=== PATIENT | male | born 1995 | race Hispanic/Latino ===

== ENCOUNTER 2022-01-20 12:12 | Emergency (ER) | payer SELFPAY ==
[2022-01-20] MEDS ORDERED: LIDOCAINE (1%) 10 MG/1 ML VIAL 20 ML MDV INFILTRATI NR (12:22)
[2022-01-20] MEDS ORDERED: IBUPROFEN 800 MG TAB PO STA (12:23)
[2022-01-20] MEDS ORDERED: TETANUS,DIPH,PERTUSS(ACELL) VACCINE 0.5 ML SYRINGE IM ONE (13:00)
--- NOTE | 2022-01-20 13:24 | XRay Report ---
RIGHT FINGER 3 VIEWS INDICATION: crush injury with laceration. COMPARISON: None. IMPRESSION: 3 views of the right second digit are presented. There is diffuse soft tissue swelling a nd laceration. No radiopaque foreign body is detected. No acute osseous injury or joint pathology. Signer Name: Reji Metz Jr, MD Signed: 01/20/2022 1:19 PM Workstation Name: [id number]
[2022-01-20] MEDS ORDERED: SODIUM CHLORIDE 0.9% IRR 500 ML BOTTLE IR ONE (13:54)
--- NOTE | 2022-01-20 14:13 | Emergency Department Report ---
<CATRACHITO COBURN L - Last Filed: 01/20/22 15:31> ED General Adult HPI - General Chief complaint: Laceration/Recheck/Suture Stated complaint: HAND INJURY W/C Time Seen by Provider: 01/20/22 12:22 - Related Data Previous Rx's Medication Instructions Recorded Last Taken Type Ibuprofen [Motrin 800 MG tab] 800 mg PO Q8HR PRN #20 tablet 01/20/22 Unknown Rx Mupirocin [Bactroban 2% OINT] 1 applic TP TID 7 Days #1 tube 01/20/22 Unknown Rx cephALEXin [Keflex] 500 mg PO Q8HR 7 Days #21 cap 01/20/22 Unknown Rx traMADoL [Ultram 50 MG tab] 50 mg PO Q8HR PRN #8 tablet 01/20/22 Unknown Rx Allergies Allergy/AdvReac Type Severity Reaction Status Date / Time No Known Allergies Allergy Unverified 01/20/22 12:30 ED Past Medical Hx - Medications Home Medications: Home Medications Medication Instructions Recorded Confirmed Last Taken Type Ibuprofen [Motrin 800 MG tab] 800 mg PO Q8HR PRN #20 tablet 01/20/22 Unknown Rx Mupirocin [Bactroban 2% OINT] 1 applic TP TID 7 Days #1 tube 01/20/22 Unknown Rx cephALEXin [Keflex] 500 mg PO Q8HR 7 Days #21 cap 01/20/22 Unknown Rx traMADoL [Ultram 50 MG tab] 50 mg PO Q8HR PRN #8 tablet 01/20/22 Unknown Rx ED Disposition Clinical Impression: Laceration of finger, Laceration Disposition: 01 HOME / SELF CARE / HOMELESS Is pt being admited?: No Does the pt Need Aspirin: No Condition: Stable Instructions: Sutures, Miriam, or Adhesive Wound Closure, [id number] Additional Instructions: Please return to the emergency department in 12 days for suture removal Prescriptions: Mupirocin [Bactroban 2% OINT] 1 applic TP TID 7 Days #1 tube cephALEXin [Keflex] 500 mg PO Q8HR 7 Days #21 cap Ibuprofen [Motrin 800 MG tab] 800 mg PO Q8HR PRN #20 tablet PRN Reason: Pain, Moderate (4-6) traMADoL [Ultram 50 MG tab] 50 mg PO Q8HR PRN #8 tablet PRN Reason: Pain , Severe (7-10) Referrals: CARBUCCIA,NADEGE, MD [Primary Care Provider] - 3-5 Days Forms: Work/School Release Form(ED) <JASON AKERS - Last Filed: 01/21/22 07:29> ED General Adult HPI - General Source: patient Mode of arrival: Ambulatory Limitations: No Limitations - History of Present Illness Initial comments: 26-year-old male patient presents with laceration to the right index finger today. Patient states he smashed his finger in a backhoe at work. He is unsure of his last tetanus vaccination. He states he has mild pain in there is some numbness. No difficulty moving the finger per patient. Drug allergies include Tylenol. Severity scale (0 -10): 2 ED Review of Systems ROS: Stated complaint: HAND INJURY W/C Other details as noted in HPI Skin: as per HPI. denies: change in color Neurological: numbness ED Physical Exam - General Limitations: No Limitations General appearance: alert, in no apparent distress - Head Head exam: Present: atraumatic, normocephalic - Respiratory Respiratory exam: Absent: respiratory distress - Cardiovascular Cardiovascular Exam: Present: regular rate - Extremities Exam Extremities exam: Present: other (Approximately 4 cm laceration noted to right index finger without bony tenderness or obvious deformities noted; no obvious foreign bodies; patient has full range of motion of the finger;) - Neurological Exam Neurological exam: Present: alert, oriented X3 - Psychiatric Psychiatric exam: Present: normal affect, normal mood - Skin Skin exam: Present: warm, dry, normal color, rash. Absent: intact ED Course Vital Signs 01/20/22 01/20/22 12:27 16:01 Temperature 98.7 F 98.3 F Pulse Rate 92 H 87 Respiratory 16 20 Rate Blood Pressure 166/105 135/89 [Left] O2 Sat by Pulse 100 100 Oximetry - Laceration /Wound Repair Finger Wound Length (cm): 4 Wound's Depth, Shape: irregular Wound Explored: no foreign body removed Irrigated w/ Saline (ccs): 300 Betadine Prep?: Yes Anesthesia: 1% Lidocaine Volume Anesthetic (ccs): 10 Suture Size/Type: 3:0 (ethilon) Number of Sutures: 15 (10 simple interrupted, 5 continuous) Sterile Dressing Applied?: Yes Progress: Minimal bleeding occurred. Patient tolerated procedure well without any immediate complications. He has normal perfusion of the finger and normal range of motion post procedure ED Medical Decision Making - Radiology Data Radiology results: report reviewed RIGHT FINGER 3 VIEWS INDICATION: crush injury with laceration. COMPARISON: None. IMPRESSION: 3 views of the right second digit are presented. There is diffuse soft tissue swelling and laceration. No radiopaque foreign body is detected. No acute osseous injury or joint pathology. - Medical Decision Making 26-year-old male patient presents with laceration to the right index finger today. Patient states he smashed his finger in a backhoe at work. He is unsure of his last tetanus vaccination. He states he has mild pain in there is some numbness. No difficulty moving the finger per patient. Drug allergies include Tylenol. X-rays negative for any acute bony abnormalities or foreign bodies. Laceration repair. Patient tolerated procedure well without any immediate complications. Patient to follow-up in 12 days for suture removal. Wound care and strict return precautions were discussed in detail with patient who verbalizes understanding Critical care attestation.: If time is entered above; I have spent that time in minutes in the direct care of this critically ill patient, excluding procedure time. ED Disposition Is pt being admited?: No
[2022-01-20 16:02] VITALS: BP 135/89
== END 2022-01-20 16:01 | disposition home or self-care (01) ==
LOC: ED 12:12
DX: S61.210A Laceration without foreign body of right index finger without damage to nail, initial encounter (principal); X58.XXXA Exposure to other specified factors, initial encounter; Y93.89 Activity, other specified; Y92.89 Other specified places as the place of occurrence of the external cause; Y99.8 Other external cause status
CPT/HCPCS: 12002; 73140; 90471; 90715; 99283; J3490